=== PATIENT | female | born 1940 | race Caucasian/White ===

== ENCOUNTER → 2021-03-20 10:08 | Outpatient (CLI) | payer MEDICARE, OTHER, SELFPAY ==
--- NOTE | 2021-03-20 10:18 | NM_ITS ---
CLINICAL: 80-year-old female with history of clinical hyperparathyroidism. 99m Tc SESTAMIBI DUAL PHASE PARATHYROID SCINTIGRAPHY COMPARISON: None available FINDINGS: Following the intravenous administration of approximately 25.0 mCi of 99m Tc sestamibi, image acquisitions of the anterior neck at 15 minutes and approximately 3.0 hours post radiopharmaceutical provision reveal: 1. Immediate static blood pool acquisitions demonstrate uniform distribution of the radiopharmaceutical in the right-left thyroid colloid. The left lobe is larger than right. 2. Delayed images depict minimal washout of the radiopharmaceutical from the persistently defined right-left thyroid colloid with no evidence of focal retention of tracer uptake noted in the right-left thyroid beds. NM/Parathyroid Scan IMPRESSION: 1. Incomplete-delayed washout of the radiopharmaceutical from the entire functioning thyroid colloid may be secondary to multinodular goiter, chronic lymphocytic thyroiditis. (Vargas, Radiographics 19: 601, 1999). 2. there is no typical scintigraphic evidence of parathyroid adenoma on the present examination. Electronically Signed: Tre Ramos DO at 23:59 EST Tel , Service support ,
== END ==
PROVIDERS: PCP Family Medicine; Referring Provider Internal Medicine Endocrinology, Diabetes & Metabolism; Visit Provider Internal Medicine Endocrinology, Diabetes & Metabolism
DX: E21.0 Primary hyperparathyroidism (principal)
CPT/HCPCS: 78070; A9500